=== PATIENT | female | born 1995 | race Two or more races ===

== ENCOUNTER 2018-12-12 10:07 | Emergency (ER) | payer OTHER ==
[~2018-12-12] VITALS: Ht 154.9 cm; Wt 81.6 kg
[~2018-12-12 10:07] MED LIST: KETO10TA2 PO; ORPH100T PO; ZYRTEC10 MG
== END 2018-12-12 17:21 | disposition home or self-care (01) ==
LOC: ER 10:07
DX: J03.90 Acute tonsillitis, unspecified (principal)

== ENCOUNTER → 2019-04-21 | Emergency (ER) | payer OTHER ==
[~2019-04-21] VITALS: Ht 154.9 cm; Wt 82.1 kg
[~2019-04-21] MED LIST changes: +ALBUTEROL0.63 MG/3; +ALBUTEROL2.5 MG/3 M IH; +MUCINEX DM ER1 EAC1 PO; +ZITHROMAX500 MG PO
== END | disposition home or self-care (01) ==
LOC: ER 20:33
DX: J45.998 Other asthma (principal)

== ENCOUNTER 2019-10-15 02:04 | Emergency (ER) | payer OTHER ==
[~2019-10-15] VITALS: Ht 154.9 cm; Wt 85.7 kg
[2019-10-15] MEDS ORDERED: PEPCID40 MG PO (08:15)
[2019-10-15] MEDS ORDERED: ZOFRAN4 MG PO (08:15)
[2019-10-15] MEDS ORDERED: INTESTINEX680 M1 PO (08:15)
== END 2019-10-15 09:20 | disposition home or self-care (01) ==
LOC: ER 02:04
DX: K52.89 Other specified noninfective gastroenteritis and colitis (principal)

== ENCOUNTER 2025-06-13 18:14 | Emergency (ER) | payer OTHER ==
[~2025-06-13] VITALS: Ht 154.9 cm; Wt 83.9 kg
[~2025-06-13 18:14] MED LIST changes: +INTESTINEX680 M1 PO; +PEPCID40 MG PO; +ZOFRAN4 MG PO
[2025-06-13 18:47] VITALS: BP 118/74; O2SAT 97
[2025-06-13] MEDS ORDERED: ALBUTEROL SULFATE 3 ML/2.5 MG AMPUL.NEB IH SCH (20:00)
[2025-06-13] MEDS ORDERED: IPRATROPIUM BROMIDE 0.5 MG/2.5 ML AMPUL.NEB IH ONE ×2 (20:00→20:33)
[2025-06-13] MEDS ORDERED: METHYLPREDNISOLONE SOD SUCC 40 MG VIAL IV ONE (20:00)
[2025-06-13] MEDS ORDERED: METHYLPREDNISOLONE SOD SUCC 40 MG VIAL ONE (20:03)
[2025-06-13] MEDS ORDERED: ALBUTEROL SULFATE 3 ML/2.5 MG AMPUL.NEB IH ONE (20:33)
[2025-06-13 21:03] LABS: COVID-19 AG NEGATIVE (NEGATIVE)
[2025-06-13 21:14] LABS: BASO % 0.4 % (0.1-1.2); EOS # 0.43 (0.04-0.54); EOS % 4.8 % (0.7-7.0); LYMPH # 2.32 (1.18-3.74); LYMPH % 26.1 % (19.3-53.1); MEAN PLATELET VOLUME 9.10 fl (9.4-12.4); MONO # 0.92 (0.24-0.82); MONO % 10.3 % (4.7-12.5); NEUT # 5.16 (1.56-6.13); NEUT % 58.2 % (34.0-71.1); RED CELL DISTRIBUTION WIDTH 12.4 % (11.6-14.4)
[2025-06-13] MEDS ORDERED: MONTELUKAST SOD10 MG PO (21:38)
== END 2025-06-13 22:12 | disposition home or self-care (01) ==
LOC: ER 18:15
PROVIDERS: General Practice
DX: J45.909 Unspecified asthma, uncomplicated (principal); R06.02 Shortness of breath; R05.9 Cough, unspecified; Z20.822 Contact with and (suspected) exposure to COVID-19